=== PATIENT | male | born 1955 | race Caucasian/White ===

== ENCOUNTER 2024-11-17 07:24 | Day surgery (SDC) | payer MEDICARE, MEDICAID ==
[2024-11-17] MEDS: Lactated Ringers 1,000 ML IV SCH (07:41)
[2024-11-17] MEDS ORDERED: Lidocaine 2% HCl 6 ML Jel ONE (08:00)
[2024-11-17] MEDS ORDERED: Phenylephrine 1% 10 MG/ML SDV ONE (08:00)
[2024-11-17] MEDS ORDERED: Lidocaine 2% 20 ML MDV ONE (08:00)
[2024-11-17] MEDS ORDERED: fentaNYL 50 MCG/ML SDV ONE ×2 (08:00)
[2024-11-17] MEDS ORDERED: Propofol 200 MG/20 ML SDV ONE (08:00)
[2024-11-17] MEDS ORDERED: Oxymetazoline 0.05% Nasal Spray 30 ML Bottle ONE (08:00)
[2024-11-17] MEDS ORDERED: Midazolam 1 MG/ML 2 ML SDV ONE (08:00)
[2024-11-17] MEDS ORDERED: ePHEDrine 50 MG/ML SDV ONE (08:00)
[2024-11-17] MEDS ORDERED: Ondansetron 4 MG/2 ML SDV ONE (08:00)
[2024-11-17] MEDS ORDERED: Dexamethasone 10 MG/ML SDV ONE (08:00)
[2024-11-17] MEDS ORDERED: Flumazenil 0.1 MG/ML 5 ML MDV ONE (08:00)
[2024-11-17] MEDS ORDERED: Succinylcholine 200 MG/10 ML MDV ONE (08:00)
[2024-11-17] MEDS: Ibuprofen 200 MG Tab PO ONE (11:40)
== END 2024-11-17 12:30 | disposition home or self-care (01) ==
LOC: CC.SDS 07:24
PROVIDERS: ATTEND Dentist General Practice
DX: K02.9 Dental caries, unspecified (principal); E11.9 Type 2 diabetes mellitus without complications; G20.A1 Parkinson's disease without dyskinesia, without mention of fluctuations; F02.818 Dementia in other diseases classified elsewhere, unspecified severity, with other behavioral disturbance; E78.5 Hyperlipidemia, unspecified; E87.6 Hypokalemia; Z79.899 Other long term (current) drug therapy; Z88.5 Allergy status to narcotic agent
CPT/HCPCS: 00170; A9270-GY; J0330; J1100; J2003; J2250; J2371; J2405; J2704; J3010; J3490; J7120

== ENCOUNTER 2025-04-12 12:00 | Emergency (ER) | payer MEDICARE, MEDICAID | END 2025-04-12 13:45 | disposition home or self-care (01) | LOC: CC.ED 12:00 | DX: S09.90XA Unspecified injury of head, initial encounter (principal); I10 Essential (primary) hypertension; E78.00 Pure hypercholesterolemia, unspecified; E11.9 Type 2 diabetes mellitus without complications; Z88.5 Allergy status to narcotic agent; Z79.4 Long term (current) use of insulin; Z79.899 Other long term (current) drug therapy; W07.XXXA Fall from chair, initial encounter; Y93.89 Activity, other specified | CPT/HCPCS: 70450; 71045; 72125; 99284 ==